=== PATIENT | female | born 1960 | race African-American/Black ===

== ENCOUNTER → 2016-08-01 | Outpatient (CLI) | payer MEDICARE ==
[~2016-08-01] MED LIST: ACCUPRIL10 M1 PO; AMOXICILLIN 50500 MG PO; ASPIRIN 81M81 MG/TA2 PO; ASPIRIN E.C. 8181 MG PO; B-121000 MCG PO; BUPROBAN150 MG PO; CELEBREX 200MG200 MG PO; CENTRUM SILVER1 CTB PO; CLEOCIN HC150 MG/CAP PO; COZAAR100 MG PO; CYMBALTA 60MG60 MG PO; DOXYCYCLINE 10100 MG PO; FLOXIN OTIC DROP5 ML OT; GLUCOPHAGE1000 MG PO; GLUCOTROL 5M5 MG/TAB PO; GLUCOTROL XL10 MG PO; HYZAAR 25 MG-101 TAB PO; JANUMET 1000 MG1 TA1 PO; JANUVIA 100MG100 MG PO; K-DUR 10 MEQ T10 MEQ PO; KLOR-CON 1010 MEQ PO; KLOR-CON SPRIN10 MEQ PO; LEVOXYL0.025 MG PO; LIPITOR20 MG PO; LOPRESSOR 225 MG/TAB PO; MULTIVITAMIN FO1 CAP PO; NEXIUM 40MG40 MG PO; NORCO 325 MG-101 TAB PO; NORCO 325 MG-51 TAB PO; NORVASC 10MG10 MG PO; PREMARIN 0.60.625 M1 PO; SYNTHROID 0.0.025 MG PO; TESSALON P100 MG/CAP PO; TOPROL XL 25MG25 MG PO; TRADJENTA5 MG PO; VITAMIN C500 MG PO; WELLBUTRIN 100100 MG PO; WELLBUTRIN SR200 MG PO
== END ==
LOC: MC.RAD 14:55
DX: Z12.31 Encounter for screening mammogram for malignant neoplasm of breast (principal)

== ENCOUNTER 2017-02-12 17:15 | Emergency (ER) | payer MEDICARE, MEDICAID ==
[~2017-02-12] VITALS: Ht 185.4 cm; Wt 165.5 kg
[~2017-02-12 17:15] MED LIST changes: -ASPIRIN E.C. 8181 MG PO; -DOXYCYCLINE 10100 MG PO; -MULTIVITAMIN FO1 CAP PO; -TESSALON P100 MG/CAP PO; -TOPROL XL 25MG25 MG PO; -WELLBUTRIN 100100 MG PO
[2017-02-12 17:20] VITALS: BP 186/99; PULSE 86; TEMP 98.8
== END 2017-02-12 19:50 | disposition home or self-care (01) ==
LOC: COL.ER 17:15
DX: S30.860A Insect bite (nonvenomous) of lower back and pelvis, initial encounter (principal); S20.462A Insect bite (nonvenomous) of left back wall of thorax, initial encounter; S20.461A Insect bite (nonvenomous) of right back wall of thorax, initial encounter; S40.861A Insect bite (nonvenomous) of right upper arm, initial encounter; S50.862A Insect bite (nonvenomous) of left forearm, initial encounter; L30.9 Dermatitis, unspecified; E11.9 Type 2 diabetes mellitus without complications; I10 Essential (primary) hypertension; Z79.84 Long term (current) use of oral hypoglycemic drugs; W57.XXXA Bitten or stung by nonvenomous insect and other nonvenomous arthropods, initial encounter

== ENCOUNTER 2017-03-14 09:33 | Emergency (ER) | payer MEDICARE, MEDICAID ==
[~2017-03-14] VITALS: Ht 185.4 cm; Wt 162.3 kg
[2017-03-14 09:36] VITALS: TEMP 97.5
[2017-03-14] MEDS ORDERED: TESSALON P100 MG/CAP PO (09:55)
[2017-03-14] MEDS ORDERED: KLOR-CON 1010 MEQ PO (09:56)
[2017-03-14] MEDS ORDERED: DOXYCYCLINE 10100 MG PO (09:56)
[2017-03-14] MEDS ORDERED: MULTIVITAMIN FO1 CAP PO (09:57)
[2017-03-14] MEDS ORDERED: CYMBALTA 60MG60 MG PO (09:57)
[2017-03-14] MEDS ORDERED: SYNTHROID 0.0.025 MG PO (09:57)
[2017-03-14] MEDS ORDERED: COZAAR100 MG PO (09:58)
[2017-03-14] MEDS ORDERED: ASPIRIN E.C. 8181 MG PO (09:58)
[2017-03-14] MEDS ORDERED: LIPITOR20 MG PO (09:58)
[2017-03-14] MEDS ORDERED: WELLBUTRIN 100100 MG PO (09:59)
[2017-03-14] MEDS ORDERED: TOPROL XL 25MG25 MG PO (09:59)
[2017-03-14] MEDS ORDERED: GLUCOTROL 5M5 MG/TAB PO (10:00)
[2017-03-14] MEDS ORDERED: TRADJENTA5 MG PO (10:00)
[2017-03-14] MEDS ORDERED: NORCO 325 MG-51 TAB PO (10:49)
[2017-03-14 11:45] VITALS: BP 138/99; PULSE 66
== END 2017-03-14 11:45 | disposition home or self-care (01) ==
LOC: COL.ER 09:33
DX: S70.11XA Contusion of right thigh, initial encounter (principal); S70.01XA Contusion of right hip, initial encounter; I10 Essential (primary) hypertension; E11.9 Type 2 diabetes mellitus without complications; Z79.84 Long term (current) use of oral hypoglycemic drugs; Z79.82 Long term (current) use of aspirin; W19.XXXA Unspecified fall, initial encounter; Y92.090 Kitchen in other non-institutional residence as the place of occurrence of the external cause

== ENCOUNTER → 2017-11-06 | Outpatient (CLI) | payer MEDICARE, MEDICAID ==
[~2017-11-06] MED LIST changes: +ASPIRIN E.C. 8181 MG PO; +DOXYCYCLINE 10100 MG PO; +MULTIVITAMIN FO1 CAP PO; +PRILOSEC 20MG20 MG PO; +TESSALON P100 MG/CAP PO; +TOPROL XL200 MG PO; +WELLBUTRIN 100100 MG PO
== END ==
LOC: MC.RAD 06:53
DX: Z12.31 Encounter for screening mammogram for malignant neoplasm of breast (principal); N63.20 Unspecified lump in the left breast, unspecified quadrant

== ENCOUNTER → 2017-11-14 | Outpatient (CLI) | payer MEDICARE, MEDICAID | LOC: MC.RAD 13:00 | DX: N63.20 Unspecified lump in the left breast, unspecified quadrant (principal) ==

== ENCOUNTER → 2018-03-27 | Outpatient (CLI) | payer MEDICARE, MEDICAID | LOC: COL.RAD 09:29 | DX: R51 Headache (principal) ==

== ENCOUNTER 2018-07-11 07:59 | Emergency (ER) | payer MEDICARE, MEDICAID ==
[~2018-07-11] VITALS: Ht 185.4 cm; Wt 159.1 kg
[2018-07-11 08:02] VITALS: TEMP 98.4
[2018-07-11 09:11] LABS: BASO # 0.1 (0.0-0.2); EOS # 0.1 (0.0-0.7); EOS % 2.1 % (0-4.0); GRAN # 3.2 (1.4-6.5); GRAN % 48.3 % (42.2-75.2); HEMOGLOBIN 13.3 g/dl (12.5-16.0); LYMPH # 2.5 (1.2-3.4); LYMPH % 37.1 % (20.0-51.0); MEAN CELL VOLUME 91 fl (80.0-100.0); MEAN CORPUSCULAR HEMOGLOBIN 30 pg (27.0-31.0); MEAN CORPUSCULAR HGB CONC 32 g/dl (33.0-37.0); MEAN PLATELET VOLUME 11.5 fl (7.4-10.4); MONO # 0.8 (0.1-0.6); MONO % 11.4 % (1.7-9.3); PLATELET COUNT 244 K/mm3 (130-400); RED BLOOD COUNT 4.49 M/mm3 (4.10-5.30)
[2018-07-11 09:20] LABS: ALANINE AMINOTRANSFERASE 39 U/L (9-52); ALKALINE PHOSPHATASE 97 U/L (50-136); ANION GAP 5 mmol/L (7-16); AST,SGOT 35 U/L (15-37); BILIRUBIN,TOTAL 0.7 mg/dL (0.0-1.0); BLOOD UREA NITROGEN 16 mg/dL (7-17); CALCIUM 9.6 mg/dL (8.4-10.2); CARBON DIOXIDE 34 mmol/L (22-30); CHLORIDE 103 mmol/L (98-107); CREATININE, serum 0.94 mg/dL (0.52-1.25); GLUCOSE 125 mg/dL (74-106); LIPASE 250 U/L (23-300); POTASSIUM 3.3 mmol/L (3.4-5.0); SODIUM 141 mmol/L (137-145); TOTAL PROTEIN 7.4 gm/dL (6.4-8.2)
[2018-07-11 09:28] LABS: C-REACTIVE PROTEIN < 0.5 mg/dL (0.0-0.9)
[2018-07-11] MEDS ORDERED: NORCO 325 MG-51 TAB PO (11:01)
[2018-07-11 12:34] VITALS: BP 194/105; PULSE 65
== END 2018-07-11 12:35 | disposition home or self-care (01) ==
LOC: COL.ER 07:59
PROVIDERS: Family Medicine
DX: R10.9 Unspecified abdominal pain (principal); I10 Essential (primary) hypertension; E11.9 Type 2 diabetes mellitus without complications; Z90.49 Acquired absence of other specified parts of digestive tract; Z79.82 Long term (current) use of aspirin; Z79.84 Long term (current) use of oral hypoglycemic drugs
CPT/HCPCS: J1885; J2405; J7030; Q9967

== ENCOUNTER 2018-08-09 12:31 | Observation (INO) | payer MEDICARE ==
[~2018-08-09] VITALS: Ht 185.4 cm; Wt 150.0 kg
[2018-08-09 13:59] LABS: BASO % 0.7 % (0.0-2.0); EOS # 0.2 (0.0-0.7); EOS % 2.8 % (0-4.0); GRAN # 2.7 (1.4-6.5); GRAN % 49.8 % (42.2-75.2); HEMATOCRIT 39.2 % (37.0-47.0); HEMOGLOBIN 12.9 g/dl (12.5-16.0); LYMPH # 1.8 (1.2-3.4); LYMPH % 32.8 % (20.0-51.0); MEAN CELL VOLUME 91 fl (80.0-100.0); MEAN CORPUSCULAR HEMOGLOBIN 30 pg (27.0-31.0); MEAN CORPUSCULAR HGB CONC 33 g/dl (33.0-37.0); MEAN PLATELET VOLUME 10.9 fl (7.4-10.4); MONO # 0.7 (0.1-0.6); MONO % 13.7 % (1.7-9.3); PLATELET COUNT 233 K/mm3 (130-400); RED BLOOD COUNT 4.31 M/mm3 (4.10-5.30); REDCELL DISTRIBUTION WIDTH-CV 14.1 % (11.5-14.5)
[2018-08-09 14:14] LABS: ALBUMIN 3.8 gm/dL (3.5-5.0); BILIRUBIN,TOTAL 0.7 mg/dL (0.0-1.0); C-REACTIVE PROTEIN 0.9 mg/dL (0.0-0.9); CALCIUM 9.4 mg/dL (8.4-10.2); CREATININE, serum 0.89 mg/dL (0.52-1.25); POTASSIUM 3.1 mmol/L (3.4-5.0)
[2018-08-09 14:23] LABS: TROPONIN-I 0.017 ng/mL (0.000-0.035)
--- NOTE | 2018-08-09 18:27 | NUR ---
Pt was admitted to room 318 from ED. She is awake and A/Ox4, indepedent in her transfer. She denies pain at this time. Saline lock to left FA is free of complications. Pt remains on room air, resp. are even and unlabored on room air. Meds/allergies/pharm reviewed. Pt was oriented to room and to staff, expressed understanding. Friends at bedside. Denies any other needs.
[2018-08-09 18:31] VITALS: BP 154/89; PULSE 107; TEMP 98.2
--- NOTE | 2018-08-09 21:31 | NUR ---
PT RESTING IN BED. REPORTS NO PAIN. NO SOA. PT REPORTS FEELING COLD, WARM BLANKET GIVEN. NO NEEDS AT THIS TIME. CALL LIGHT IN REACH
[2018-08-09 21:34] VITALS: BP 176/77; PULSE 93; TEMP 97.6
--- NOTE | 2018-08-10 01:09 | NUR ---
pt sleeping through night. K+ replaced. no pain. no needs at this time. call light in reach
[2018-08-10 01:11] VITALS: BP 151/71; PULSE 82; TEMP 97.5
--- NOTE | 2018-08-10 05:33 | NUR ---
pt slept through night. no pain. no needs at this time. K+ replaced. call light in reach
[2018-08-10 05:39] VITALS: BP 164/62; PULSE 87; TEMP 97.5
[2018-08-10 06:59] LABS: BASO % 0.6 % (0.0-2.0); EOS # 0.2 (0.0-0.7); GRAN # 2.3 (1.4-6.5); GRAN % 43.9 % (42.2-75.2); HEMOGLOBIN 11.8 g/dl (12.5-16.0); LYMPH # 2.1 (1.2-3.4); LYMPH % 39.2 % (20.0-51.0); MEAN CELL VOLUME 92 fl (80.0-100.0); MEAN CORPUSCULAR HEMOGLOBIN 30 pg (27.0-31.0); MEAN CORPUSCULAR HGB CONC 32 g/dl (33.0-37.0); MONO # 0.7 (0.1-0.6); MONO % 13.1 % (1.7-9.3); PLATELET COUNT 227 K/mm3 (130-400); RED BLOOD COUNT 3.99 M/mm3 (4.10-5.30); REDCELL DISTRIBUTION WIDTH-CV 14.2 % (11.5-14.5)
[2018-08-10 07:00] LABS: HEMATOCRIT 36.7 % (37.0-47.0)
[2018-08-10 07:06] LABS: CALCIUM 9.1 mg/dL (8.4-10.2); CREATININE, serum 0.78 mg/dL (0.52-1.25); POTASSIUM 3.5 mmol/L (3.4-5.0)
--- NOTE | 2018-08-10 07:15 | NUR ---
report given to Annabelle Patel RN
[2018-08-10 09:15] VITALS: BP 143/73; PULSE 93; TEMP 98.8
[2018-08-10 12:16] VITALS: BP 126/67; PULSE 69; TEMP 99
--- NOTE | 2018-08-10 14:01 | NUR ---
LAKHWINDER met with the patient to discuss discharge plan. The patient has been living at the [facility] for the past couple of months. She states she had moved to [place] to live with her son, but that things were not working out there, so she moved back to [place]. She states that she is in the process of looking for a new apartment for herself and her [id number] granddaughter. She reports her granddaughter is living with a friend in [place] at this time. She reports independence with ADLs and does not use any DME. The patient's PCP is Dr. Chloe Murcia and she receives her medications at the [facility]. She reports no difficulties obtaining her meds. The patient does not have advanced directives, but she was interested in obtaining a form for DPOA-HC. LAKHWINDER provided. The patient plans to return back to the [facility] upon discharge. She states that she has been in contact with them and that she has informed them that she will be returning after her hospital stay. No additional needs at this time.
--- NOTE | 2018-08-10 15:13 | NUR ---
This Rn reviewed discharge instructions iwth pt, answered all questions. INT from LFA removed with tip intact, site free of redness, swelling. Pt denies needs, persona belognigns are collected, pt will eat lunch then depart
== END 2018-08-10 15:14 | disposition home or self-care (01) ==
LOC: COL.ER 12:31 → MEDICAL 16:07
PROVIDERS: Physician Assistant; ADMIT Hospitalist
DX: R07.89 Other chest pain (principal); R05 Cough; E87.6 Hypokalemia; K21.9 Gastro-esophageal reflux disease without esophagitis; F32.9 Major depressive disorder, single episode, unspecified; E03.9 Hypothyroidism, unspecified; E78.5 Hyperlipidemia, unspecified; I10 Essential (primary) hypertension; E11.9 Type 2 diabetes mellitus without complications; Z79.82 Long term (current) use of aspirin; Z79.84 Long term (current) use of oral hypoglycemic drugs; Z90.49 Acquired absence of other specified parts of digestive tract; Z90.710 Acquired absence of both cervix and uterus
CPT/HCPCS: G0378; J1650; J7030; Q9967

== ENCOUNTER 2018-10-02 21:14 | Emergency (ER) | payer MEDICARE ==
[~2018-10-02] VITALS: Ht 185.4 cm; Wt 150.9 kg
[2018-10-02 21:24] VITALS: TEMP 97.6
[2018-10-02 22:02] LABS: COLLECTION METHOD CLEAN CATCH
[2018-10-02 22:05] LABS: BASO # 0.1 (0.0-0.2); BASO % 0.6 % (0.0-2.0); EOS # 0.2 (0.0-0.7); EOS % 2.3 % (0-4.0); GRAN # 3.6 (1.4-6.5); GRAN % 45.5 % (42.2-75.2); HEMATOCRIT 42.2 % (37.0-47.0); LYMPH # 3.1 (1.2-3.4); LYMPH % 39.3 % (20.0-51.0); MEAN CELL VOLUME 91 fl (80.0-100.0); MEAN CORPUSCULAR HEMOGLOBIN 30 pg (27.0-31.0); MEAN CORPUSCULAR HGB CONC 33 g/dl (33.0-37.0); MEAN PLATELET VOLUME 11.4 fl (7.4-10.4); PLATELET COUNT 272 K/mm3 (130-400); RED BLOOD COUNT 4.66 M/mm3 (4.10-5.30)
[2018-10-02 22:09] LABS: MUCOUS Present /lpf; PH 6 (5-8); SQUAMOUS EPITHELIAL 0-2 /hpf; URINE APPEARANCE Hazy; URINE BACTERIA None Seen /hpf; URINE BILIRUBIN Positive (NEGATIVE); URINE BLOOD Negative (NEGATIVE); URINE COLOR Amber; URINE GLUCOSE Negative (NEGATIVE); URINE KETONE Trace (NEGATIVE); URINE LEUKOCYTE ESTERASE Negative (NEGATIVE); URINE NITRATE Negative (NEGATIVE); URINE PROTEIN(semi-quant) Negative (NEGATIVE); URINE RBC 0-2 /hpf; URINE UROBILINOGEN >=4.0 mg/dL (NEGATIVE)
[2018-10-02 22:17] LABS: ALANINE AMINOTRANSFERASE 25 U/L (9-52); ALKALINE PHOSPHATASE 81 U/L (50-136); ANION GAP 10 mmol/L (7-16); AST,SGOT 35 U/L (15-37); BILIRUBIN,TOTAL 0.7 mg/dL (0.0-1.0); BLOOD UREA NITROGEN 24 mg/dL (7-17); CALCIUM 10.1 mg/dL (8.4-10.2); CARBON DIOXIDE 29 mmol/L (22-30); CHLORIDE 101 mmol/L (98-107); CREATININE, serum 1.03 (0.52-1.25); GLUCOSE 162 mg/dL (74-106); LIPASE 221 U/L (23-300); POTASSIUM 3.7 mmol/L (3.4-5.0); SODIUM 140 mmol/L (137-145); TOTAL PROTEIN 7.4 gm/dL (6.4-8.2)
[2018-10-02 22:28] LABS: TROPONIN-I < 0.012 ng/mL (0.000-0.035)
[2018-10-03 00:59] VITALS: BP 163/80; PULSE 56
== END 2018-10-03 01:00 | disposition home or self-care (01) ==
LOC: COL.ER 21:14
PROVIDERS: Emergency Medicine
DX: R10.0 Acute abdomen (principal); R07.89 Other chest pain; E11.9 Type 2 diabetes mellitus without complications; I10 Essential (primary) hypertension; E78.5 Hyperlipidemia, unspecified; F32.9 Major depressive disorder, single episode, unspecified; E03.9 Hypothyroidism, unspecified; K21.9 Gastro-esophageal reflux disease without esophagitis; E66.9 Obesity, unspecified; Z79.82 Long term (current) use of aspirin; Z90.49 Acquired absence of other specified parts of digestive tract; Z90.710 Acquired absence of both cervix and uterus; Z87.891 Personal history of nicotine dependence

== ENCOUNTER 2018-10-10 18:54 | Emergency (ER) | payer MEDICARE ==
[~2018-10-10] VITALS: Ht 185.4 cm; Wt 150.0 kg
[2018-10-10 18:57] VITALS: TEMP 99.6
[2018-10-10 19:38] LABS: BASO % 0.4 % (0.0-2.0); EOS # 0.1 (0.0-0.7); EOS % 1.9 % (0-4.0); GRAN # 4.1 (1.4-6.5); GRAN % 56.4 % (42.2-75.2); HEMATOCRIT 41.9 % (37.0-47.0); HEMOGLOBIN 13.5 g/dl (12.5-16.0); LYMPH # 2.1 (1.2-3.4); LYMPH % 29.2 % (20.0-51.0); MEAN CELL VOLUME 91 fl (80.0-100.0); MEAN CORPUSCULAR HEMOGLOBIN 29 pg (27.0-31.0); MEAN CORPUSCULAR HGB CONC 32 g/dl (33.0-37.0); MEAN PLATELET VOLUME 10.9 fl (7.4-10.4); MONO # 0.9 (0.1-0.6); PLATELET COUNT 254 K/mm3 (130-400); REDCELL DISTRIBUTION WIDTH-CV 13.8 % (11.5-14.5)
[2018-10-10 19:46] LABS: ALANINE AMINOTRANSFERASE 27 U/L (9-52); ALBUMIN 4.2 gm/dL (3.5-5.0); ALKALINE PHOSPHATASE 95 U/L (50-136); ANION GAP 10 mmol/L (7-16); AST,SGOT 28 U/L (15-37); BILIRUBIN,TOTAL 1.4 mg/dL (0.0-1.0); BLOOD UREA NITROGEN 8 mg/dL (7-17); CARBON DIOXIDE 29 mmol/L (22-30); CHLORIDE 100 mmol/L (98-107); CREATININE, serum 0.97 (0.52-1.25); GLUCOSE 134 mg/dL (74-106); LIPASE 101 U/L (23-300); POTASSIUM 3.5 mmol/L (3.4-5.0); SODIUM 139 mmol/L (137-145); TOTAL PROTEIN 7.6 gm/dL (6.4-8.2)
[2018-10-10 19:50] LABS: COLLECTION METHOD CLEAN CATCH
[2018-10-10 19:59] LABS: TROPONIN-I < 0.012 ng/mL (0.000-0.035)
[2018-10-10 20:12] LABS: PH 7 (5-8); SQUAMOUS EPITHELIAL None Seen /hpf; URINE APPEARANCE Clear; URINE BACTERIA None Seen /hpf; URINE BILIRUBIN Negative (NEGATIVE); URINE BLOOD Negative (NEGATIVE); URINE COLOR Yellow; URINE GLUCOSE Negative (NEGATIVE); URINE KETONE Negative (NEGATIVE); URINE LEUKOCYTE ESTERASE Negative (NEGATIVE); URINE NITRATE Negative (NEGATIVE); URINE PROTEIN(semi-quant) Negative (NEGATIVE); URINE RBC 0-2 /hpf; URINE UROBILINOGEN Negative (NEGATIVE)
[2018-10-10 21:13] VITALS: BP 167/88; PULSE 67
== END 2018-10-10 21:10 | disposition home or self-care (01) ==
LOC: COL.ER 18:54
PROVIDERS: Emergency Medicine
DX: R10.12 Left upper quadrant pain (principal); R10.32 Left lower quadrant pain; K21.9 Gastro-esophageal reflux disease without esophagitis; I10 Essential (primary) hypertension; E11.9 Type 2 diabetes mellitus without complications; Z79.82 Long term (current) use of aspirin; Z90.49 Acquired absence of other specified parts of digestive tract; Z79.84 Long term (current) use of oral hypoglycemic drugs
CPT/HCPCS: J2270; J2405; J7030; Q9967

== ENCOUNTER 2018-10-12 04:30 | Day surgery (SDC) | payer MEDICARE ==
[~2018-10-12] VITALS: Ht 185.4 cm; Wt 151.7 kg
[2018-10-12] VITALS (12 sets, daily range): BP systolic 135–161; BP diastolic 64–87; PULSE 63–69; TEMP 97.5
[2018-10-12 07:10] LABS: HEMATOCRIT 40.3 % (37.0-47.0); HEMOGLOBIN 13.1 g/dl (12.5-16.0); MEAN CELL VOLUME 92 fl (80.0-100.0); MEAN CORPUSCULAR HEMOGLOBIN 30 pg (27.0-31.0); MEAN CORPUSCULAR HGB CONC 33 g/dl (33.0-37.0); PLATELET COUNT 242 K/mm3 (130-400); RED BLOOD COUNT 4.38 M/mm3 (4.10-5.30); REDCELL DISTRIBUTION WIDTH-CV 13.9 % (11.5-14.5)
[2018-10-12 07:14] LABS: PROTHROMBIN TIME 11.7 SECONDS (9.7-12.8)
--- NOTE | 2018-10-12 07:42 | NUR ---
Initial visit; Patient thanked Hot Box Checker for offering her encouragement and prayer prior to her Procedure.
[2018-10-12 07:54] LABS: CALCIUM 9.5 mg/dL (8.4-10.2); CREATININE, serum 0.99 (0.52-1.25); POTASSIUM 3.3 mmol/L (3.4-5.0)
[2018-10-12] MEDS ORDERED: NEXIUM 40MG40 MG PO (09:25)
[2018-10-12] MEDS ORDERED: K-DUR20 MEQ PO (09:26)
--- NOTE | 2018-10-12 09:40 | NUR ---
PT BACK TO ROOM 14 POST CARDIAC CATH.VSS AND AXOX3. DENIES PAIN AT THIS TIME. RIGHT RADIAL SITE C/D/I AND SOFT ON PALPATION. RADIAL COMPRESSION BAND IN PLACE. PT RESTING IN BED AT THIS TIME.
--- NOTE | 2018-10-12 14:00 | NUR ---
VSS AND AX0X3 POST CARDIAC CATH. 12CC OF AIR REMOVED FROM TR BAND WITHOUT ISSUE AND DRESSING PLACED. PT TOLERATED FOOD AND FLUID PO AND AMBULATED TO RESTROOM. DISCHARGE INSTRUCTIONS REVIEWED AND SIGNED. 20G REMOVED FROM LEFT FA. DUE TO ISSUE WITH RIDE, PATIENT HAD TO STAY LONGER THAN EXPECTED. KELECHI PRESENT BRINELL TESTER, WAS UNABLE TO PICK PT UP 2 HOURS POST PROCEDURE. NEICE SHOWED UP AT 1400 AND PATIENT WHEELED SAFELY OUT BY STAFF TO CAR WHERE NEICE WAS PRESENT BRINELL TESTER.
== END 2018-10-12 16:00 | disposition home or self-care (01) ==
LOC: COL.CAR 04:30
PROVIDERS: Internal Medicine Cardiovascular Disease
DX: R07.9 Chest pain, unspecified (principal); R94.39 Abnormal result of other cardiovascular function study; M19.90 Unspecified osteoarthritis, unspecified site; F32.9 Major depressive disorder, single episode, unspecified; E11.9 Type 2 diabetes mellitus without complications; I51.7 Cardiomegaly; E78.5 Hyperlipidemia, unspecified; I10 Essential (primary) hypertension; E03.9 Hypothyroidism, unspecified; E66.9 Obesity, unspecified; Z90.710 Acquired absence of both cervix and uterus; Z90.721 Acquired absence of ovaries, unilateral; Z79.82 Long term (current) use of aspirin; Z79.84 Long term (current) use of oral hypoglycemic drugs; Z87.891 Personal history of nicotine dependence; Z83.3 Family history of diabetes mellitus; Z82.49 Family history of ischemic heart disease and other diseases of the circulatory system; Z68.42 Body mass index [BMI] 45.0-49.9, adult; G47.33 Obstructive sleep apnea (adult) (pediatric)
CPT/HCPCS: J1644; J2250; J3010; Q9967

== ENCOUNTER 2018-12-17 16:24 | Emergency (ER) | payer MEDICARE ==
[~2018-12-17] VITALS: Ht 185.4 cm; Wt 145.5 kg
[~2018-12-17 16:24] MED LIST changes: +K-DUR20 MEQ PO
[2018-12-17 16:25] VITALS: TEMP 97.4
[2018-12-17] MEDS ORDERED: BENTYL 10MG10 MG/CAP PO (16:31)
[2018-12-17] MEDS ORDERED: ALDACTONE 25MG25 M1 PO (16:48)
[2018-12-17] MEDS ORDERED: PEPCID 20MG TAB20 MG PO (16:48)
[2018-12-17] MEDS ORDERED: HCTZ12.5TAB PO (16:49)
[2018-12-17 16:53] LABS: BASO % 0.6 % (0.0-2.0); EOS # 0.2 (0.0-0.7); GRAN # 3.1 (1.4-6.5); GRAN % 45.1 % (42.2-75.2); HEMATOCRIT 38.2 % (37.0-47.0); HEMOGLOBIN 12.6 g/dl (12.5-16.0); LYMPH # 2.6 (1.2-3.4); LYMPH % 38.3 % (20.0-51.0); MEAN CELL VOLUME 91 fl (80.0-100.0); MEAN CORPUSCULAR HEMOGLOBIN 30 pg (27.0-31.0); MEAN CORPUSCULAR HGB CONC 33 g/dl (33.0-37.0); MEAN PLATELET VOLUME 11.2 fl (7.4-10.4); MONO # 0.9 (0.1-0.6); MONO % 12.9 % (1.7-9.3); PLATELET COUNT 229 K/mm3 (130-400); RED BLOOD COUNT 4.22 M/mm3 (4.10-5.30); REDCELL DISTRIBUTION WIDTH-CV 14.1 % (11.5-14.5)
[2018-12-17 17:05] LABS: ALANINE AMINOTRANSFERASE 30 U/L (9-52); ALBUMIN 3.9 gm/dL (3.5-5.0); ALKALINE PHOSPHATASE 77 U/L (50-136); ANION GAP 10 mmol/L (7-16); AST,SGOT 30 U/L (15-37); BILIRUBIN,TOTAL 0.6 mg/dL (0.0-1.0); BLOOD UREA NITROGEN 14 mg/dL (7-17); CALCIUM 9.6 mg/dL (8.4-10.2); CARBON DIOXIDE 28 mmol/L (22-30); CHLORIDE 103 mmol/L (98-107); CREATININE, serum 1.02 (0.52-1.25); GLUCOSE 127 mg/dL (74-106); LIPASE 202 U/L (23-300); POTASSIUM 3.7 mmol/L (3.4-5.0); SODIUM 141 mmol/L (137-145); TOTAL PROTEIN 7.2 gm/dL (6.4-8.2)
[2018-12-17 17:10] LABS: COLLECTION METHOD CLEAN CATCH
[2018-12-17 17:20] LABS: PH 8 (5-8); SQUAMOUS EPITHELIAL None Seen /hpf; URINE APPEARANCE Clear; URINE BACTERIA None Seen /hpf; URINE BILIRUBIN Negative (NEGATIVE); URINE BLOOD Negative (NEGATIVE); URINE COLOR Straw; URINE GLUCOSE Negative (NEGATIVE); URINE KETONE Negative (NEGATIVE); URINE LEUKOCYTE ESTERASE Negative (NEGATIVE); URINE NITRATE Negative (NEGATIVE); URINE PROTEIN(semi-quant) Negative (NEGATIVE); URINE RBC None Seen /hpf; URINE UROBILINOGEN Negative (NEGATIVE)
[2018-12-17 17:27] LABS: TRICYCLIC ANTIDEPRESS URINE NEGATIVE
[2018-12-17 17:39] LABS: C-REACTIVE PROTEIN 0.5 mg/dL (0.0-0.9); TROPONIN-I < 0.012 ng/mL (0.000-0.035)
[2018-12-17 17:43] LABS: SALICYLATE 1.1 mg/dL
[2018-12-17 17:44] LABS: ACETAMINOPHEN < 10 ug/mL (10-30); ALCOHOL(ethanol),MEDICAL < 10 mg/dL
[2018-12-17 21:00] VITALS: BP 157/98; PULSE 80
== END 2018-12-17 21:15 | disposition home or self-care (01) ==
LOC: COL.ER 16:24
PROVIDERS: Emergency Medicine
DX: R10.12 Left upper quadrant pain (principal); R10.11 Right upper quadrant pain; R41.0 Disorientation, unspecified; E78.5 Hyperlipidemia, unspecified; E11.9 Type 2 diabetes mellitus without complications; I10 Essential (primary) hypertension; F17.220 Nicotine dependence, chewing tobacco, uncomplicated; M54.9 Dorsalgia, unspecified; Z79.82 Long term (current) use of aspirin; Z79.84 Long term (current) use of oral hypoglycemic drugs
CPT/HCPCS: J2405; J7030; Q9967

== ENCOUNTER 2018-12-23 10:50 | Emergency (ER) | payer MEDICARE ==
[~2018-12-23] VITALS: Ht 185.4 cm; Wt 150.0 kg
[~2018-12-23 10:50] MED LIST changes: +ALDACTONE 25MG25 M1 PO; +BENTYL 10MG10 MG/CAP PO; +HCTZ12.5TAB PO; +PEPCID 20MG TAB20 MG PO
[2018-12-23 12:53] VITALS: BP 167/88; PULSE 67; TEMP 97.8
== END 2018-12-23 12:56 | disposition home or self-care (01) ==
LOC: COL.ER 10:50
DX: M25.561 Pain in right knee (principal); M25.562 Pain in left knee; E11.9 Type 2 diabetes mellitus without complications; E03.9 Hypothyroidism, unspecified; K21.9 Gastro-esophageal reflux disease without esophagitis; D17.21 Benign lipomatous neoplasm of skin and subcutaneous tissue of right arm; F32.9 Major depressive disorder, single episode, unspecified; E78.5 Hyperlipidemia, unspecified; I10 Essential (primary) hypertension; Z90.49 Acquired absence of other specified parts of digestive tract; Z79.84 Long term (current) use of oral hypoglycemic drugs; Z95.9 Presence of cardiac and vascular implant and graft, unspecified; Z79.82 Long term (current) use of aspirin

== ENCOUNTER → 2020-01-30 | Outpatient (CLI) | payer MEDICARE, MEDICAID | LOC: MC.RAD 14:54 | DX: Z12.31 Encounter for screening mammogram for malignant neoplasm of breast (principal); N63.10 Unspecified lump in the right breast, unspecified quadrant ==

== ENCOUNTER → 2020-02-10 | Outpatient (CLI) | payer MEDICARE, MEDICAID | LOC: MC.RAD 02-06 11:30 | DX: N63.10 Unspecified lump in the right breast, unspecified quadrant (principal) ==

== ENCOUNTER 2020-03-09 12:39 | Emergency (ER) | payer MEDICARE, MEDICAID ==
[~2020-03-09] VITALS: Ht 185.4 cm; Wt 140.9 kg
[2020-03-09 13:19] VITALS: BP 157/89; TEMP 98.5
[2020-03-09 13:51] LABS: COLLECTION METHOD CLEAN CATCH
[2020-03-09 13:54] LABS: BASO # 0.1 (0.0-0.2); BASO % 0.7 % (0.0-2.0); EOS # 0.2 (0.0-0.7); EOS % 2.6 % (0-4.0); GRAN # 3.5 (1.4-6.5); GRAN % 50.3 % (42.2-75.2); HEMATOCRIT 39.4 % (37.0-47.0); HEMOGLOBIN 12.8 g/dl (12.5-16.0); LYMPH # 2.5 (1.2-3.4); LYMPH % 35.7 % (20.0-51.0); MEAN CELL VOLUME 90 fl (80.0-100.0); MEAN CORPUSCULAR HEMOGLOBIN 29 pg (27.0-31.0); MEAN CORPUSCULAR HGB CONC 33 g/dl (33.0-37.0); MEAN PLATELET VOLUME 11.2 fl (7.4-10.4); MONO # 0.7 (0.1-0.6); MONO % 10.4 % (1.7-9.3); PLATELET COUNT 217 K/mm3 (130-400); RED BLOOD COUNT 4.39 M/mm3 (4.10-5.30); REDCELL DISTRIBUTION WIDTH-CV 14.1 % (11.5-14.5)
[2020-03-09 14:02] LABS: MUCOUS Present /lpf; PH 8 (5-8); URINE APPEARANCE Hazy; URINE BACTERIA Rare /hpf; URINE BILIRUBIN Negative (NEGATIVE); URINE BLOOD Negative (NEGATIVE); URINE COLOR Amber; URINE GLUCOSE Negative (NEGATIVE); URINE KETONE Negative (NEGATIVE); URINE LEUKOCYTE ESTERASE Negative (NEGATIVE); URINE NITRATE Negative (NEGATIVE); URINE PROTEIN(semi-quant) Negative (NEGATIVE); URINE RBC 0-2 /hpf
[2020-03-09 14:05] LABS: ALANINE AMINOTRANSFERASE 18 U/L (4-34); ALBUMIN 4.1 gm/dL (3.5-5.0); ALKALINE PHOSPHATASE 80 U/L (50-136); ANION GAP 7 mmol/L (7-16); AST,SGOT 24 U/L (15-37); BILIRUBIN,TOTAL 1.6 mg/dL (0.0-1.0); BLOOD UREA NITROGEN 15 mg/dL (7-17); CALCIUM 9.7 mg/dL (8.4-10.2); CARBON DIOXIDE 32 mmol/L (22-30); CHLORIDE 102 mmol/L (98-107); CREATININE, serum 0.92 (0.52-1.25); GLUCOSE 103 mg/dL (74-106); LIPASE 146 U/L (23-300); SODIUM 141 mmol/L (137-145); TOTAL PROTEIN 7.2 gm/dL (6.4-8.2)
[2020-03-09 14:06] LABS: C-REACTIVE PROTEIN < 0.5 mg/dL (0.0-0.9)
[2020-03-09] MEDS ORDERED: BENTYL 10MG10 MG/CAP PO (15:15)
[2020-03-09] MEDS ORDERED: HYGROTON 2525 MG/TAB (15:16)
[2020-03-09] MEDS ORDERED: COZAAR 50MG50 MG/TAB PO (15:16)
[2020-03-09] MEDS ORDERED: MOBIC15 MG PO (15:17)
[2020-03-09] MEDS ORDERED: LIPITOR 40MG TA40 MG PO (15:17)
[2020-03-09] MEDS ORDERED: SEROQUEL 2525 MG/TAB PO (15:18)
[2020-03-09] MEDS ORDERED: PERCOCET 325 MG1 TA2 PO (15:27)
[2020-03-09 15:48] VITALS: PULSE 82
== END 2020-03-09 15:48 | disposition home or self-care (01) ==
LOC: COL.ER 12:39
PROVIDERS: Family Medicine
DX: R10.11 Right upper quadrant pain (principal); I25.10 Atherosclerotic heart disease of native coronary artery without angina pectoris; E11.9 Type 2 diabetes mellitus without complications; I10 Essential (primary) hypertension; Z79.82 Long term (current) use of aspirin; Z79.84 Long term (current) use of oral hypoglycemic drugs
CPT/HCPCS: J2270; J2405; J7120; Q9967

== ENCOUNTER 2020-12-03 10:25 | Emergency (ER) | payer MEDICARE, MEDICAID ==
[~2020-12-03] VITALS: Ht 185.4 cm; Wt 100.0 kg
[~2020-12-03 10:25] MED LIST changes: +COZAAR 50MG50 MG/TAB PO; +HYGROTON 2525 MG/TAB; +LIPITOR 40MG TA40 MG PO; +MOBIC15 MG PO; +PERCOCET 325 MG1 TA2 PO; +SEROQUEL 2525 MG/TAB PO
[2020-12-03 10:45] VITALS: TEMP 98.2
[2020-12-03 11:22] LABS: BASO % 0.7 % (0.0-2.0); EOS # 0.1 (0.0-0.7); EOS % 2.3 % (0-4.0); GRAN # 2.7 (1.4-6.5); GRAN % 47.5 % (42.2-75.2); HEMATOCRIT 39.3 % (37.0-47.0); HEMOGLOBIN 12.9 g/dl (12.5-16.0); LYMPH # 2.2 (1.2-3.4); LYMPH % 38.3 % (20.0-51.0); MEAN CELL VOLUME 91 fl (80.0-100.0); MEAN CORPUSCULAR HEMOGLOBIN 30 pg (27.0-31.0); MEAN CORPUSCULAR HGB CONC 33 g/dl (33.0-37.0); MEAN PLATELET VOLUME 11.9 fl (7.4-10.4); MONO # 0.6 (0.1-0.6); PLATELET COUNT 224 K/mm3 (130-400); RED BLOOD COUNT 4.34 M/mm3 (4.10-5.30); REDCELL DISTRIBUTION WIDTH-CV 14.4 % (11.5-14.5)
[2020-12-03 11:57] LABS: ALBUMIN 3.7 gm/dL (3.5-5.0); CALCIUM 9.6 mg/dL (8.4-10.2); CREATININE, serum 0.8 (0.52-1.25); POTASSIUM 3.2 mmol/L (3.4-5.0); TOTAL PROTEIN 6.7 gm/dL (6.4-8.2)
[2020-12-03 12:31] LABS: COLLECTION METHOD CLEAN CATCH
[2020-12-03 12:44] LABS: PH 7 (5-8); SQUAMOUS EPITHELIAL 0-2 /hpf; URINE APPEARANCE Clear; URINE BACTERIA None Seen /hpf; URINE BILIRUBIN Negative (NEGATIVE); URINE BLOOD Negative (NEGATIVE); URINE COLOR Yellow; URINE GLUCOSE Negative (NEGATIVE); URINE KETONE Negative (NEGATIVE); URINE LEUKOCYTE ESTERASE Negative (NEGATIVE); URINE NITRATE Negative (NEGATIVE); URINE PROTEIN(semi-quant) Negative (NEGATIVE); URINE RBC None Seen /hpf; URINE UROBILINOGEN Negative (NEGATIVE)
[2020-12-03 13:42] VITALS: BP 140/86; PULSE 62
== END 2020-12-03 13:46 | disposition home or self-care (01) ==
LOC: COL.ER 10:25
PROVIDERS: Family Medicine
DX: I10 Essential (primary) hypertension (principal); Z87.891 Personal history of nicotine dependence; Z79.899 Other long term (current) drug therapy

== ENCOUNTER → 2020-12-10 | Outpatient (CLI) | payer MEDICARE, MEDICAID ==
[~2020-12-10] MED LIST changes: +MEDROL 4MG DOSPA4 MG PO; +NORVASC 5MG5 MG/TAB PO
== END ==
LOC: COL.RAD 10:00
DX: I67.82 Cerebral ischemia (principal); F03.90 Unspecified dementia, unspecified severity, without behavioral disturbance, psychotic disturbance, mood disturbance, and anxiety
CPT/HCPCS: Q9967

== ENCOUNTER 2020-12-20 15:16 | Emergency (ER) | payer MEDICARE, MEDICAID ==
[~2020-12-20 15:16] MED LIST changes: -MEDROL 4MG DOSPA4 MG PO; -NORVASC 5MG5 MG/TAB PO
[2020-12-20 15:21] VITALS: TEMP 98.9
[2020-12-20] MEDS ORDERED: MEDROL 4MG DOSPA4 MG PO (16:07)
[2020-12-20 16:16] VITALS: BP 192/98; PULSE 58
== END 2020-12-20 16:20 | disposition home or self-care (01) ==
LOC: COL.ER 15:16
DX: M17.11 Unilateral primary osteoarthritis, right knee (principal); I10 Essential (primary) hypertension; I25.10 Atherosclerotic heart disease of native coronary artery without angina pectoris; E78.5 Hyperlipidemia, unspecified; E11.9 Type 2 diabetes mellitus without complications; F32.9 Major depressive disorder, single episode, unspecified; F41.9 Anxiety disorder, unspecified; Z87.891 Personal history of nicotine dependence; Z79.890 Hormone replacement therapy; Z79.899 Other long term (current) drug therapy; Z79.84 Long term (current) use of oral hypoglycemic drugs; Z79.82 Long term (current) use of aspirin

== ENCOUNTER 2021-03-03 17:56 | Emergency (ER) | payer MEDICARE, MEDICAID ==
[~2021-03-03] VITALS: Ht 182.9 cm; Wt 121.8 kg
[~2021-03-03 17:56] MED LIST changes: +MEDROL 4MG DOSPA4 MG PO
[2021-03-03] MEDS ORDERED: NORVASC 5MG5 MG/TAB PO (21:29)
[2021-03-03 21:46] VITALS: BP 179/86; PULSE 58; TEMP 98.6
== END 2021-03-03 21:46 | disposition home or self-care (01) ==
LOC: COL.ER 17:56
DX: I10 Essential (primary) hypertension (principal); Z79.899 Other long term (current) drug therapy

== ENCOUNTER 2021-03-17 08:15 | Outpatient (RCR) | payer MEDICARE, MEDICAID ==
[~2021-03-17 08:15] MED LIST changes: +NORVASC 5MG5 MG/TAB PO
== END 2021-04-21 | disposition home or self-care (01) ==
LOC: MKS.ESL.PT
DX: M17.0 Bilateral primary osteoarthritis of knee (principal)

== ENCOUNTER 2021-07-03 16:01 | Emergency (ER) | payer MEDICARE, MEDICAID ==
[~2021-07-03] VITALS: Ht 185.4 cm; Wt 100.0 kg
[2021-07-03 16:56] LABS: BASO % 0.6 % (0.0-2.0); EOS % 0.4 % (0.0-4.0); GRAN # 4.1 K/mm3 (1.4-6.5); GRAN % 74.9 % (42.2-75.2); HEMOGLOBIN 12.2 g/dl (12.5-16.0); LYMPH # 0.4 K/mm3 (1.2-3.4); LYMPH % 6.6 % (20.0-51.0); MEAN CELL VOLUME 93 fl (80.0-100.0); MEAN CORPUSCULAR HEMOGLOBIN 31 pg (27-31); MEAN CORPUSCULAR HGB CONC 33 g/dl (33.0-37.0); MEAN PLATELET VOLUME 11.3 fl (7.4-10.4); MONO # 0.9 K/mm3 (0.1-0.6); MONO % 17.1 % (1.7-9.3); PLATELET COUNT 209 K/mm3 (130-400); RED BLOOD COUNT 3.99 M/mm3 (4.10-5.30); REDCELL DISTRIBUTION WIDTH-CV 13.9 % (11.5-14.5)
[2021-07-03 17:01] LABS: HEMATOCRIT 36.9 % (37.0-47.0)
[2021-07-03 17:14] LABS: ALBUMIN 3.8 gm/dL (3.4-4.8); BILIRUBIN,TOTAL 1.8 mg/dL (0.2-1.2); CALCIUM 9.6 mg/dL (8.4-10.2); CREATININE, serum 0.86 mg/dL (0.57-1.11); TOTAL PROTEIN 6.9 gm/dL (6.2-8.1)
[2021-07-03 18:30] LABS: COLLECTION METHOD CLEAN CATCH
[2021-07-03 18:58] LABS: MUCOUS Present (NOT PRESENT); PH 7 (5-8); SQUAMOUS EPITHELIAL 0-2 /hpf (0-10); URINE APPEARANCE Clear (CLEAR/HAZY); URINE BACTERIA Rare /hpf (NONE SEEN); URINE BILIRUBIN Negative (NEGATIVE); URINE BLOOD Negative (NEGATIVE); URINE COLOR Yellow (YELLOW); URINE GLUCOSE Negative (NEGATIVE); URINE KETONE Negative (NEGATIVE); URINE LEUKOCYTE ESTERASE Negative (NEGATIVE); URINE NITRATE Negative (NEGATIVE); URINE PROTEIN(semi-quant) Negative (NEGATIVE); URINE UROBILINOGEN Negative (NEGATIVE)
[2021-07-03] MEDS ORDERED: K-TAB20 PO (19:32)
[2021-07-03 20:30] VITALS: BP 148/64; PULSE 73; TEMP 98.7
== END 2021-07-03 20:35 | disposition home or self-care (01) ==
LOC: COL.ER 16:01
PROVIDERS: Physician Assistant
DX: U07.1 COVID-19 (principal); I10 Essential (primary) hypertension; I25.10 Atherosclerotic heart disease of native coronary artery without angina pectoris; E78.5 Hyperlipidemia, unspecified; E11.9 Type 2 diabetes mellitus without complications; F32.A Depression, unspecified; F41.9 Anxiety disorder, unspecified; F03.90 Unspecified dementia, unspecified severity, without behavioral disturbance, psychotic disturbance, mood disturbance, and anxiety; Z79.899 Other long term (current) drug therapy; Z79.84 Long term (current) use of oral hypoglycemic drugs
CPT/HCPCS: J2765; J7030; M0245; Q0244

== ENCOUNTER → 2022-07-06 | Outpatient (CLI) | payer MEDICARE, MEDICAID ==
[~2022-07-06] MED LIST changes: +K-TAB20 PO
[2022-07-06 18:27] LABS: BASO % 0.8 % (0.0-2.0); EOS # 0.1 K/mm3 (0.0-0.7); EOS % 2.3 % (0.0-4.0); GRAN # 2.1 K/mm3 (1.4-6.5); GRAN % 40.1 % (42.2-75.2); HEMATOCRIT 41.2 % (37.0-47.0); HEMOGLOBIN 13.7 g/dl (12.5-16.0); LYMPH # 2.4 K/mm3 (1.2-3.4); LYMPH % 45.3 % (20.0-51.0); MEAN CELL VOLUME 92 fl (80.0-100.0); MEAN CORPUSCULAR HEMOGLOBIN 31 pg (27-31); MEAN CORPUSCULAR HGB CONC 33 g/dl (33.0-37.0); MEAN PLATELET VOLUME 11.5 fl (7.4-10.4); MONO # 0.6 K/mm3 (0.1-0.6); MONO % 11.1 % (1.7-9.3); PLATELET COUNT 198 K/mm3 (130-400); RED BLOOD COUNT 4.48 M/mm3 (4.10-5.30); REDCELL DISTRIBUTION WIDTH-CV 14.2 % (11.5-14.5)
[2022-07-06 18:41] LABS: ALBUMIN 3.8 gm/dL (3.4-4.8); BILIRUBIN,TOTAL 1.3 mg/dL (0.2-1.2); CREATININE, serum 0.78 mg/dL (0.57-1.11); MAGNESIUM 1.8 mg/dL (1.6-2.6); POTASSIUM 3.3 mmol/L (3.5-4.5); TOTAL PROTEIN 6.9 gm/dL (6.2-8.1)
[2022-07-06 19:01] LABS: TSH w REFLEX 0.936 uIU/mL (0.350-4.940)
== END ==
LOC: COL.LAB 17:26
PROVIDERS: Registered Nurse
DX: Z79.899 Other long term (current) drug therapy (principal); E78.5 Hyperlipidemia, unspecified; Z86.39 Personal history of other endocrine, nutritional and metabolic disease; E11.69 Type 2 diabetes mellitus with other specified complication; I10 Essential (primary) hypertension

== ENCOUNTER 2024-02-29 11:08 | Emergency (ER) | payer MEDICARE, MEDICAID ==
[~2024-02-29] VITALS: Ht 185.4 cm; Wt 79.1 kg
[2024-02-29 11:13] VITALS: TEMP 98.6
[2024-02-29] MEDS ORDERED: fentaNYL 50 MCG/ML 2 ML VIAL IV ONE (11:45)
[2024-02-29 12:52] VITALS: BP 152/83; PULSE 69
== END 2024-02-29 13:02 | disposition home or self-care (01) ==
LOC: COL.ER 11:08
DX: R51.9 Headache, unspecified (principal)
CPT/HCPCS: J0780; J3010